=== PATIENT | male | born 2000 | race Hispanic/Latino ===

== ENCOUNTER 2023-02-18 15:16 | Emergency (ER) | payer OTHER ==
[~2023-02-18] VITALS: Ht 175.3 cm; Wt 100.6 kg
[2023-02-18 15:17] VITALS: TEMP 98.8
[2023-02-18 17:04] VITALS: BP 136/88; O2SAT 99
== END 2023-02-18 17:07 | disposition home or self-care (01) ==
LOC: M ED 15:16
DX: S83.92XA Sprain of unspecified site of left knee, initial encounter (principal); F17.200 Nicotine dependence, unspecified, uncomplicated; F10.10 Alcohol abuse, uncomplicated; Y92.39 Other specified sports and athletic area as the place of occurrence of the external cause